=== PATIENT | female | born 2000 | race Caucasian/White ===

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

== ENCOUNTER 2022-05-04 21:33 | Emergency (ER) | payer OTHER ==
--- NOTE | 2022-05-04 22:10 | ERPHSYRPT ---
- History of Present Illness Source: patient Exam Limitations: no limitations Patient Subjective Stated Complaint: States she has pain in the left side of her face. Patient had a seizure prior to coming to the ED and states she hit that side of her face on the concrete. Triage Nursing Assessment: Patient ambulated back to ED without difficulties. Alert and oriented and answering questions appropriately. Patient holding left side of face. No skin alterations noted to left side of face; skin intact with no bruising or swelling. Inside of mouth examined with no abnormalities noted at this time. Physician History: 22 yo wf w long h/o seizure do presents s/p seizure where she fell and hit her head. Pt's has not has a seizure in 3.5 yrs but recently had dose of Keppra increased. She complains of [place]/Facial pain/cervical pain. Occurred: just prior to arrival Severity: mild Head Injury Location: global Method of Injury: other (seizure do) Loss of Consciousness: brief (seconds) Associated Symptoms: denies symptoms Allergies/Adverse Reactions: coconut Allergy (Verified 05/04/22 21:41) coconut oil Allergy (Verified 05/04/22 21:41) jeremy Allergy (Uncoded 05/04/22 21:41) Home Medications: levETIRAcetam [Levetiracetam ER] 6 tab PO HS 05/04/22 [History] Hx Tetanus, Diphtheria Vaccination/Date Given: Yes Hx Influenza Vaccination/Date Given: Yes Hx Pneumococcal Vaccination/Date Given: Yes Immunizations Up to Date: Yes Travel Risk - International Travel Have you traveled outside of the country in past 3 weeks: No - Coronavirus Screening Are you exhibiting any of the following symptoms?: No Close contact with a COVID-19 positive Pt in past 14-21 Days: No - Vaccine Status Have you recieved a Covid-19 vaccination: No - Review of Systems Constitutional: No Symptoms Eyes: No Symptoms Ears, Nose, & Throat: No Symptoms Respiratory: No Symptoms Cardiac: No Symptoms Abdominal/Gastrointestinal: No Symptoms Genitourinary Symptoms: No Symptoms Musculoskeletal: No Symptoms Skin: No Symptoms Neurological: No Symptoms, Headache, Seizure Psychological: No Symptoms Endocrine: No Symptoms Hematologic/Lymphatic: No Symptoms Immunological/Allergic: No Symptoms - Past Medical History Pertinent Past Medical History: Yes Neurological History: Epilepsy, Seizures ENT History: No Pertinent History Cardiac History: No Pertinent History Respiratory History: No Pertinent History Endocrine Medical History: No Pertinent History Musculoskeletal History: Fractures GI Medical History: No Pertinent History History: No Pertinent History Psycho-Social History: Anxiety, Depression Female Reproductive Disorders: No Pertinent History Other Medical History: CHRONIC BACK PAIN - Past Surgical History Past Surgical History: Yes Neuro Surgical History: No Pertinent History Cardiac: No Pertinent History Respiratory: No Pertinent History Gastrointestinal: No Pertinent History Genitourinary: No Pertinent History Musculoskeletal: No Pertinent History, Orthopedic Surgery Female Surgical History: No Pertinent History Other Surgical History: rt arm - Social History Smoking Status: Never smoker Exposure to second hand smoke: No Drug Use: none Patient Lives Alone: No Significant Family History: no pertinent family hx - Female History Hx Last Menstrual Period: April 08, 2022 Hx Now: No - Nursing Vital Signs Nursing Vital Signs: Initial Vital Signs Temperature 98 F 05/04/22 21:43 Pulse Rate 96 H 05/04/22 21:43 Respiratory Rate 19 05/04/22 21:43 Blood Pressure 139/93 05/04/22 21:43 O2 Sat by Pulse Oximetry 98 05/04/22 21:43 Pain Scale Pain Intensity [] 7 Pain Intensity 7 Borderline hypertension - Kary Coma Score Best Eye Response (Kary): (4) open spontaneously Best Verbal Response (Kary): (5) oriented Best Motor Response (Roby): (6) obeys commands Roby Total: 15 - Physical Exam General Appearance: no apparent distress Head Injury: tenderness (Mild L parietal-temporal TTP) Eye Exam: bilateral eye: normal inspection, PERRL, EOMI ENT Exam: airway nml, No evidence of ENT injury, No clear fluid (ears), No clear fluid (nose), No midface instability Neck Exam: supple, trachea midline, tenderness (C-spine mild TTP) Cardiovascular/Respiratory Exam: normal breath sounds, regular rate/rhythm, heart sounds normal Gastrointestinal/Abdominal Exam: soft, non tender Back Exam: normal inspection, normal range of motion, No vertebral tenderness Extremity Exam: non-tender, normal range of motion, normal inspection, normal capillary refill Mental Status Exam: alert, 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, 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 Exam: normal hearing, normal speech, PERRL, abnormal eye position Coordination/Gait Exam: normal gait, normal cerebellar function Motor/Sensory Exam: no motor deficit, no sensory deficit, no pronator drift, negative Babinski's sign DTR Exam: bicep (R): 2+, bicep (L): 2+ Skin Exam: normal color, warm, dry, No rash Lymphatic Exam: adenopathy SpO2 Interpretation: normal SpO2: 98 O2 Delivery: Room Air - Course Nursing assessment & vital signs reviewed: Yes - CT Exams Head CT Interpretation: Tele-radiologist Report (Head-neg) Maxillofacial Bones CT Interpretation: Tele-radiologist Report (No fx) Cervical Spine CT Interpretation: Tele-radiologist Report (No fx/Reactive lymph nodes) Ordered Tests: Active Orders 24 hr Category Date Time Status CERVICAL SPINE WO CONTRAST [CT] Stat Exams 05/04/22 22:03 Taken FACIAL BONES WO CONTRAST [CT] Stat Exams 05/04/22 22:02 Taken HEAD WITHOUT CONTRAST [CT] Stat Exams 05/04/22 22:02 Taken - Progress Progress: improved Progress Note: 05/04/22 23:00 Pt refuses all pain meds Counseled pt/family regarding: diagnosis, need for follow-up, rad results - Departure Departure Disposition: Home Clinical Impression: Seizure, Cervical strain, Facial contusion Condition: Stable Critical Care Time: No Referrals: MARIE WALSH NP [Primary Care Provider] - Follow up/PCP as directed Instructions: Seizures, Adult (DC), Cervical Muscle Strain (DC) Additional Instructions: No driving until cleared by neurologist/Follow up with neurologist in 1-2 days Ice to contused areas for 12-24 hours' Motrin/Tylenol for pain
[2022-05-04 23:29] VITALS: BP 140/88; PULSE 84
[2022-05-05 00:21] VITALS: O2SAT 98
--- NOTE | 2022-05-05 08:55 | XRAY ---
Indication: Seizure. Status post fall. Left head/facial injury. Multiple contiguous axial images obtained through the head without contrast. Comparison: None Normal appearing brain parenchyma, ventricles, and bony calvarium. Paranasal sinuses and mastoid air cells are clear. Impression: Normal CT head without contrast exam. Comment: Preliminary interpretation made by [facility]. No critical discrepancy.
--- NOTE | 2022-05-05 08:55 | XRAY ---
Indication: Seizure. Status post fall. Left head/facial injury. Multiple contiguous axial images obtained through the cervical spine. Sagittal and coronal reformatted images obtained. Comparison: None Axial images negative for acute fracture, suspicious bony lesions, or spinal canal stenosis. Sagittal and coronal reformatted images demonstrates mild lordotic reversal, positional versus paraspinal spasm. Vertebral body heights/disc spaces maintained. No acute compression fracture, subluxation, or jumped facet. Normal appearing craniocervical junction. Visualized noncontrasted soft tissues unremarkable. Impression: Cervical lordotic reversal, positional versus paraspinal spasm. Negative for acute fracture/subluxation. Comment: Preliminary interpretation made by [facility]. No critical discrepancy.
--- NOTE | 2022-05-05 08:57 | XRAY ---
Indication: Seizure. Status post fall. Left head/facial injury. Multiple contiguous axial images obtained through the facial bones. Sagittal and coronal reformative images obtained. Comparison: None No acute fracture, suspicious bony lesions, or radiopaque foreign body. Orbits including roof, ayala, and floors intact. Paranasal sinuses and nasal passages are clear. Mild nasal septal deviation to the left. Visualized noncontrasted soft tissues are unremarkable. Impression: Nasal septal deviation. Remaining CT facial bones normal. Comment: Preliminary interpretation made by [facility]. No critical discrepancy.
== END 2022-05-04 23:29 | disposition home or self-care (01) ==
LOC: ED 21:33
DX: S16.1XXA Strain of muscle, fascia and tendon at neck level, initial encounter (principal); S00.83XA Contusion of other part of head, initial encounter; W18.30XA Fall on same level, unspecified, initial encounter; G40.909 Epilepsy, unspecified, not intractable, without status epilepticus; R51.9 Headache, unspecified; Z28.310 Unvaccinated for COVID-19
CPT/HCPCS: 70450; 70486; 72125; 99283

== ENCOUNTER 2022-06-08 16:02 | Emergency (ER) | payer OTHER ==
[2022-06-08 16:26] VITALS: O2SAT 98
--- NOTE | 2022-06-08 16:37 | ERPHSYRPT ---
- History of Present Illness Time Seen by Provider: 06/08/22 16:32 Source: patient Exam Limitations: no limitations Patient Subjective Stated Complaint: C/O left eye pain with swelling and visual impairment that patient noted this morning upon woking up. States that vision and swelling just keep getting worse throughout the day. Denies any injury to the eye. Triage Nursing Assessment: Patient ambulated back to ED. She is alert and oriented and answering questions appropriately. Left eyelid is very swollen as well as under the eye has some edema. Patient wears bifocals. Patient's vision checked via the ED eye chart with the following results: Right eye 20/30, left eye 20/200, and both eyes at once 20/70. Patient unable to open eye for this nurse to visually inspect due to pain and swelling at this time. Physician History: Left eyelid is very swollen as well as under the eye has some edema. Patient wears bifocals. Patient's vision checked via the ED eye chart with the following results: Right eye 20/30, left eye 20/200, and both eyes at once 20/70. Patient unable to open eye for this nurse to visually inspect due to pain and swelling at this time. Timing/Duration: abrupt onset Severity: moderate Prearrival Treatment: no prearrival treatment Associated Symptoms: other (left eyelid swelling) Allergies/Adverse Reactions: coconut Allergy (Verified 06/08/22 16:10) coconut oil Allergy (Verified 06/08/22 16:10) jeremy Allergy (Uncoded 06/08/22 16:10) Home Medications: levETIRAcetam [Levetiracetam ER] 6 tab PO HS 05/04/22 [History] Hx Tetanus, Diphtheria Vaccination/Date Given: Yes Hx Influenza Vaccination/Date Given: No Hx Pneumococcal Vaccination/Date Given: No Immunizations Up to Date: Yes Travel Risk - International Travel Have you traveled outside of the country in past 3 weeks: No - Coronavirus Screening Are you exhibiting any of the following symptoms?: No Close contact with a COVID-19 positive Pt in past 14-21 Days: No - Vaccine Status Have you recieved a Covid-19 vaccination: No - Review of Systems Constitutional: No Fever, No Chills Eyes: Other (left eyelids swelling) Ears, Nose, & Throat: No Symptoms Respiratory: No Cough, No Dyspnea Cardiac: No Chest Pain, No Edema, No Syncope Abdominal/Gastrointestinal: No Abdominal Pain, No Nausea, No Vomiting, No Diarrhea Genitourinary Symptoms: No Dysuria Musculoskeletal: No Back Pain, No Neck Pain Skin: No Rash Neurological: No Dizziness, No Focal Weakness, No Sensory Changes Psychological: No Symptoms Endocrine: No Symptoms All Other Systems: Reviewed and Negative - Past Medical History Pertinent Past Medical History: Yes Neurological History: Epilepsy, Seizures ENT History: No Pertinent History Cardiac History: Hypertension Respiratory History: No Pertinent History Endocrine Medical History: No Pertinent History Musculoskeletal History: Fractures GI Medical History: No Pertinent History History: No Pertinent History Psycho-Social History: Anxiety, Depression Female Reproductive Disorders: No Pertinent History Other Medical History: CHRONIC BACK PAIN - Past Surgical History Past Surgical History: Yes Neuro Surgical History: No Pertinent History Cardiac: No Pertinent History Respiratory: No Pertinent History Gastrointestinal: No Pertinent History Genitourinary: No Pertinent History Musculoskeletal: No Pertinent History, Orthopedic Surgery Female Surgical History: No Pertinent History Other Surgical History: rt arm, ankle, knee - Social History Smoking Status: Never smoker Exposure to second hand smoke: No Drug Use: none Patient Lives Alone: No Significant Family History: no pertinent family hx - Female History Hx Last Menstrual Period: A week ago Hx Now: No - Nursing Vital Signs Nursing Vital Signs: Initial Vital Signs Temperature 98.3 F 06/08/22 16:10 Pulse Rate 81 06/08/22 16:10 Respiratory Rate 16 06/08/22 16:10 Blood Pressure 140/111 06/08/22 16:10 O2 Sat by Pulse Oximetry 98 06/08/22 16:10 Pain Scale Pain Intensity 6 - Physical Exam General Appearance: no apparent distress, alert Eye Exam: left eye: other (upper and lower eyelid swelling), bilateral eye: PERRL, EOMI Ear Exam: bilateral ear: auricle normal Nasal Exam: normal inspection Throat Exam: pharynx normal, moist mucus membranes, No tonsillar exudate Neck Exam: supple Cardiovascular/Respiratory Exam: normal breath sounds, regular rate/rhythm Abdominal Exam: non-tender, soft Neurologic Exam: alert, 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, sensation nml, No motor deficits Skin Exam: normal color, warm, dry SpO2: 98 - Course Nursing assessment & vital signs reviewed: Yes - Progress Progress: improved Counseled pt/family regarding: diagnosis, need for follow-up - Departure Departure Disposition: Home Clinical Impression: Allergic reaction to detergent Condition: Stable Critical Care Time: No Referrals: MARIE WALSH NP [Primary Care Provider] - Follow up/PCP as directed Instructions: Angioedema (DC), Allergic Reaction ED Additional Instructions: Discharge/Care Plan SARA RODRIGUEZ was seen on 06/08/22 in the Emergency Room. The patient was counseled regarding Diagnosis,Lab results, Imaging studies, need for follow up and when to return to the Emergency Room. Prescriptions given: Discharge Note I have spoken with the patient and/or caregivers. I have explained the patient's condition, diagnosis and treatment plan based on the information available to me at this time. I have answered the patient's and/or caregiver's questions and addressed any concerns. The patient and/or caregivers have as good understanding of the patient's diagnosis, condition and treatment plan as can be expected at this point. The vital signs have been stable. The patient's condition is stable and appropriate for discharge from the emergency department. The patient will pursue further outpatient evaluation with the primary care physician or other designated or consulting physician as outlined in the discharge instructions. The patient and/or caregivers are agreeable to this plan of care and follow-up instructions have been explained in detail. The patient and/or caregivers have received these instruction. The patient/and or caregivers are aware that any significant change in condition or worsening of symptoms should prompt an immediate return to this or the closest emergency department or call 911. Prescriptions: Methylprednisolone Packet [Medrol Dosepack] 4 mg PO UD #21 packet
[2022-06-08] MEDS ORDERED: solu-MEDROL 125 MG, Sterile H2O 10 ml 2 ML IM ONE ×2 (16:38)
[2022-06-08] MEDS ORDERED: Sterile H2O 10 ml IJ ONE (16:41)
[2022-06-08] MEDS ORDERED: solu-MEDROL ONE (16:41)
[2022-06-08 17:01] VITALS: BP 136/96; PULSE 96
== END 2022-06-08 17:01 | disposition home or self-care (01) ==
LOC: ED 16:02
DX: T78.49XA Other allergy, initial encounter (principal); H57.89 Other specified disorders of eye and adnexa; I10 Essential (primary) hypertension; Z28.310 Unvaccinated for COVID-19; Z79.52 Long term (current) use of systemic steroids
CPT/HCPCS: 96372; 99282; J2930

== ENCOUNTER 2022-10-13 19:43 | Emergency (ER) | payer OTHER ==
[2022-10-13 20:58] VITALS: O2SAT 98
--- NOTE | 2022-10-13 21:40 | ERPHSYRPT ---
- History of Present Illness Time Seen by Provider: 10/13/22 21:00 Source: patient Exam Limitations: no limitations Patient Subjective Stated Complaint: pt states she has a history of seizures, diagnosed with epilepsy since , states she has had several grand mal seizu res, and petit mal seizures that began at 11 am this morning she states she has had 6 seizures that she states she experienced auras before, she is unsure how long they lasted. states she has had sinus problems in the last week and states that they may have had an effect on her so that they increased her seizure activity. Triage Nursing Assessment: pt is alert and oriented. ambulated to room without assistance, pt states she has a postictal headache that she rates 10/10. Physician History: Patient is 22-year-old female presents emergency department for evaluation of seizures. Patient has a history of epilepsy. Patient taken Keppra as recom mended. Patient states she had several generalized seizures today. Patient called her neurologist Dr. Hoffman who advised her to come to our ED for evaluation. Patient states he will adjust her medications at home he just wants to make sure there is nothing obvious triggering her seizures. Patient otherwise feels well. No tongue biting. Patient denies incontinence. No fevers. No neck pain. No photophobia patient completely symptomatic at this time. She voices no other complaints or concerns at this time. Timing/Duration: today Severity: mild Modifying Factors: Improves With: nothing Associated Symptoms: denies symptoms Allergies/Adverse Reactions: No Known Drug Allergies Allergy (Unverified 10/13/22 20:58) Home Medications: levETIRAcetam [Levetiracetam ER] 6 tab PO HS 05/04/22 [History] Hx Tetanus, Diphtheria Vaccination/Date Given: Yes Hx Influenza Vaccination/Date Given: No Hx Pneumococcal Vaccination/Date Given: No Travel Risk - International Travel Have you traveled outside of the country in past 3 weeks: No - Coronavirus Screening Are you exhibiting any of the following symptoms?: No Close contact with a COVID-19 positive Pt in past 14-21 Days: No - Vaccine Status Have you recieved a Covid-19 vaccination: Yes Purchasing/Receiving: Rewarding Return - Vaccination Dates Dates if Unknown: unknown - Review of Systems Constitutional: No Symptoms, No Fever, No Chills Eyes: No Symptoms Ears, Nose, & Throat: No Symptoms Respiratory: No Symptoms, No Cough, No Dyspnea Cardiac: No Symptoms, No Chest Pain, No Edema, No Syncope Abdominal/Gastrointestinal: No Symptoms, No Abdominal Pain, No Nausea, No Vomiting, No Diarrhea Genitourinary Symptoms: No Symptoms, No Dysuria Musculoskeletal: No Symptoms, No Back Pain, No Neck Pain Skin: No Symptoms, No Rash Neurological: No Symptoms, No Dizziness, No Focal Weakness, No Sensory Changes Psychological: No Symptoms Endocrine: No Symptoms Hematologic/Lymphatic: No Symptoms Immunological/Allergic: No Symptoms All Other Systems: Reviewed and Negative - Past Medical History Pertinent Past Medical History: Yes Neurological History: Epilepsy, Seizures ENT History: No Pertinent History Cardiac History: Hypertension Respiratory History: No Pertinent History Endocrine Medical History: No Pertinent History Musculoskeletal History: Fractures GI Medical History: No Pertinent History History: No Pertinent History Psycho-Social History: Anxiety, Depression Female Reproductive Disorders: No Pertinent History Other Medical History: CHRONIC BACK PAIN - Past Surgical History Past Surgical History: Yes Neuro Surgical History: No Pertinent History Cardiac: No Pertinent History Respiratory: No Pertinent History Gastrointestinal: No Pertinent History Genitourinary: No Pertinent History Musculoskeletal: No Pertinent History, Orthopedic Surgery Female Surgical History: No Pertinent History Other Surgical History: rt arm, ankle, knee - Social History Smoking Status: Never smoker Exposure to second hand smoke: No Drug Use: none Patient Lives Alone: No Significant Family History: no pertinent family hx - Female History Hx Last Menstrual Period: 10/09/22 Hx Now: No - Nursing Vital Signs Nursing Vital Signs: Initial Vital Signs Temperature 98.7 F 10/13/22 20:45 Pulse Rate 93 H 10/13/22 20:45 Respiratory Rate 18 10/13/22 20:45 Blood Pressure 171/92 10/13/22 20:45 O2 Sat by Pulse Oximetry 98 10/13/22 20:45 Pain Scale Pain Intensity 5 - Physical Exam General Appearance: no apparent distress, alert Eye Exam: PERRL/EOMI, eyes nml inspection Ears, Nose, Throat Exam: normal ENT inspection, TMs normal, pharynx normal, moist mucous membranes Neck Exam: normal inspection, non-tender, supple, full range of motion Respiratory Exam: normal breath sounds, lungs clear, No respiratory distress Cardiovascular Exam: regular rate/rhythm, normal heart sounds, normal peripheral pulses Gastrointestinal/Abdomen Exam: soft, normal bowel sounds, No tenderness, No mass Back Exam: normal inspection, normal range of motion, No CVA tenderness, No vertebral tenderness Extremity Exam: normal inspection, normal range of motion, pelvis stable Neurologic Exam: alert, 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, cooperative, normal mood/affect, nml cer ebellar function, nml station & gait, sensation nml, No motor deficits Skin Exam: normal color, warm, dry, No rash Lymphatic Exam: No adenopathy SpO2 Interpretation: normal SpO2: 98 O2 Delivery: Room Air - Course Nursing assessment & vital signs reviewed: Yes Ordered Tests: Active Orders 24 hr Category Date Time Status IV Insertion STAT Care 10/13/22 21:26 Active CBC W DIFF Stat Lab 10/13/22 22:00 Completed CMP Stat Lab 10/13/22 21:50 Completed HCG,QUALITATIVE URINE Stat Lab 10/13/22 21:30 Completed MAGNESIUM Stat Lab 10/13/22 21:50 Completed UA W/RFX CULTURE Stat Lab 10/13/22 21:30 Completed Urine Triage Profile Stat Lab 10/13/22 21:30 Completed Lab/Rad Data: Laboratory Result Diagrams 10/13/22 22:00 10/13/22 21:50 Laboratory Results 10/13/22 10/13/22 10/13/22 Range/Units 22:00 21:50 21:50 WBC 9.0 (4.0-10.5) x10^3/uL RBC 4.49 (4.1-5.4) x10^6/uL Hgb 13.7 (12.0-16.0) g/dL Hct 40.1 (35-47) % MCV 89.3 (78-100) fL MCH 30.5 (26-32) pg MCHC 34.2 (32-36) g/dL RDW 12.2 (11.5-14.0) % Plt Count 294 (150-450) x10^3/uL MPV 10.5 (7.5-11.0) fL Gran % 62.6 (36.0-66.0) % Immature Gran % (Auto) 0.2 (0.00-0.4) % Nucleat RBC Rel Count 0.0 (0.00-0.1) % Eos # (Auto) 0.08 (0-0.5) x10^3/uL Immature Gran # (Auto) 0.02 (0.00-0.03) x10^3u/L Absolute Lymphs (auto) 2.55 (1.0-4.6) x10^3/uL Absolute Monos (auto) 0.68 (0.0-1.3) x10^3/uL Absolute Nucleated RBC 0.00 (0.00-0.01) x10^3u/L Lymphocytes % 28.5 (24.0-44.0) % Monocytes % 7.6 (0.0-12.0) % Eosinophils % 0.9 (0.00-5.0) % Basophils % 0.2 (0.0-0.4) % Absolute Granulocytes 5.60 (1.4-6.9) x10^3/uL Basophils # 0.02 (0-0.4) x10^3/uL Sodium 139 (137-145) mmol/L Potassium 4.0 (3.5-5.1) mmol/L Chloride 103 (98-107) mmol/L Carbon Dioxide 30 (22-30) mmol/L Anion Gap 10.1 (5-15) MEQ/L BUN 8 (7-17) mg/dL Creatinine 0.79 (0.52-1.04) mg/dL Estimated GFR > 60.0 ML/MIN Glucose 90 (74-106) mg/dL Calcium 9.2 (8.4-10.2) mg/dL Magnesium 1.8 (1.6-2.3) mg/dL Total Bilirubin 0.70 (0.2-1.3) mg/dL AST 27 (14-36) U/L ALT 33 (0-35) U/L Alkaline Phosphatase 66 (38-126) U/L Serum Total Protein 8.0 (6.3-8.2) g/dL Albumin 4.5 (3.5-5.0) g/dL Urinalys Dipstick Clnc Urine Color (YELLOW) Urine Appearance (CLEAR) Urine pH (5-6) Ur Specific [place] (1.005-1.025) POC Urine Protein Conf (Negative) Urine Ketones (NEGATIVE) Urine Nitrite (NEGATIVE) Urine Bilirubin (NEGATIVE) Urine Urobilinogen (0-1) mg/dL Urine Leukocytes (NEGATIVE) Urine WBC (Auto) (0-5) /HPF Urine RBC (Auto) (0-2) /HPF U Epithel Cells (Auto) (FEW) /HPF Urine Bacteria (Auto) Urine RBC (0-5) Marty/ul Urine Mucus (Auto) (NEGATIVE) /HPF Urine Sperm (Auto) (NEGATIVE) /HPF Ur Culture Indicated? Urine Glucose (NEGATIVE) mg/dL Urine HCG, Qual (Negative) Urine Opiates Level (NEGATIVE) Ur Methadone (NEGATIVE) Urine Barbiturates (NEGATIVE) Ur Phencyclidine (PCP) (NEGATIVE) Urine Amphetamine (NEGATIVE) U Benzodiazepine Level (NEGATIVE) Urine Cocaine (NEGATIVE) Urine Marijuana (THC) (NEGATIVE) 10/13/22 10/13/22 10/13/22 Range/Units 21:30 21:30 21:30 WBC (4.0-10.5) x10^3/uL RBC (4.1-5.4) x10^6/uL Hgb (12.0-16.0) g/dL Hct (35-47) % MCV (78-100) fL MCH (26-32) pg MCHC (32-36) g/dL RDW (11.5-14.0) % Plt Count (150-450) x10^3/uL MPV (7.5-11.0) fL Gran % (36.0-66.0) % Immature Gran % (Auto) (0.00-0.4) % Nucleat RBC Rel Count (0.00-0.1) % Eos # (Auto) (0-0.5) x10^3/uL Immature Gran # (Auto) (0.00-0.03) x10^3u/L Absolute Lymphs (auto) (1.0-4.6) x10^3/uL Absolute Monos (auto) (0.0-1.3) x10^3/uL Absolute Nucleated RBC (0.00-0.01) x10^3u/L Lymphocytes % (24.0-44.0) % Monocytes % (0.0-12.0) % Eosinophils % (0.00-5.0) % Basophils % (0.0-0.4) % Absolute Granulocytes (1.4-6.9) x10^3/uL Basophils # (0-0.4) x10^3/uL Sodium (137-145) mmol/L Potassium (3.5-5.1) mmol/L Chloride (98-107) mmol/L Carbon Dioxide (22-30) mmol/L Anion Gap (5-15) MEQ/L BUN (7-17) mg/dL Creatinine (0.52-1.04) mg/dL Estimated GFR ML/MIN Glucose (74-106) mg/dL Calcium (8.4-10.2) mg/dL Magnesium (1.6-2.3) mg/dL Total Bilirubin (0.2-1.3) mg/dL AST (14-36) U/L ALT (0-35) U/L Alkaline Phosphatase (38-126) U/L Serum Total Protein (6.3-8.2) g/dL Albumin (3.5-5.0) g/dL Urinalys Dipstick Clnc MAIN LAB Urine Color YELLOW (YELLOW) Urine Appearance CLEAR (CLEAR) Urine pH 7.0 (5-6) Ur Specific [place] 1.020 (1.005-1.025) POC Urine Protein Conf TRACE A (Negative) Urine Ketones NEGATIVE (NEGATIVE) Urine Nitrite NEGATIVE (NEGATIVE) Urine Bilirubin NEGATIVE (NEGATIVE) Urine Urobilinogen 1 A (0-1) mg/dL Urine Leukocytes NEGATIVE (NEGATIVE) Urine WBC (Auto) 3-5 A (0-5) /HPF Urine RBC (Auto) 0-2 (0-2) /HPF U Epithel Cells (Auto) RARE (FEW) /HPF Urine Bacteria (Auto) Not Reportable Urine RBC TRACE-INTACT A (0-5) Marty/ul Urine Mucus (Auto) SLIGHT A (NEGATIVE) /HPF Urine Sperm (Auto) PRESENT A (NEGATIVE) /HPF Ur Culture Indicated? NO Urine Glucose NEGATIVE (NEGATIVE) mg/dL Urine HCG, Qual NEGATIVE (Negative) Urine Opiates Level NEGATIVE (NEGATIVE) Ur Methadone NEGATIVE (NEGATIVE) Urine Barbiturates NEGATIVE (NEGATIVE) Ur Phencyclidine (PCP) NEGATIVE (NEGATIVE) Urine Amphetamine NEGATIVE (NEGATIVE) U Benzodiazepine Level NEGATIVE (NEGATIVE) Urine Cocaine NEGATIVE (NEGATIVE) Urine Marijuana (THC) NEGATIVE (NEGATIVE) - Progress Progress: improved Progress Note: Patient reassessed. She is well. Patient resting comfortably. Work-up negative. Patient was in advised to come to our ED for checkup. Patient declined admission. Patient states she will call her neurologist in the morning and adjust the Keppra dosage as recommended which is typically 200 mg higher than the previous dose. Will discharge at this time. Patient voices no other complaints or concerns at this time. Portions of this note were created with voice recognition technology. There may be grammatical, spelling, punctuation or sound alike errors 10/14/22 00:10 Counseled pt/family regarding: lab results, diagnosis, need for follow-up - Departure Departure Disposition: Home Clinical Impression: Seizure Condition: Stable Critical Care Time: No Referrals: MARIE WALSH NP [Primary Care Provider] - Follow up/PCP as directed Additional Instructions: Discharge/Care Plan SARA RODRIGUEZ was seen on 10/14/22 in the Emergency Room. The patient was counseled regarding Diagnosis,Lab results, Imaging studies, need for follow up and when to return to the Emergency Room. Prescriptions given: Discharge Note I have spoken with the patient and/or caregivers. I have explained the patient's condition, diagnosis and treatment plan based on the information available to me at this time. I have answered the patient's and/or caregiver's questions and addressed any concerns. The patient and/or caregivers have as good understanding of the patient's diagnosis, condition and treatment plan as can be expected at this point. The vital signs have been stable. The patient's condition is stable and appropriate for discharge from the emergency department. The patient will pursue further outpatient evaluation with the primary care physician or other designated or consulting physician as outlined in the discharge instructions. The patient and/or caregivers are agreeable to this plan of care and follow-up instructions have been explained in detail. The patient and/or caregivers have received these instruction. The patient/and or caregivers are aware that any significant change in condition or worsening of symptoms should prompt an immediate return to this or the closest emergency department or call 911.
[2022-10-13 21:52] LABS: Appearance CLEAR (CLEAR); Bilirubin NEGATIVE (NEGATIVE); Glucose NEGATIVE (NEGATIVE); Ketones NEGATIVE (NEGATIVE); Nitrite NEGATIVE (NEGATIVE); Protein,Urine Dip TRACE (Negative); RBC TRACE-INTACT Ery/ul (0-5); Urobilinogen 1 mg/dL (0-1)
[2022-10-13 21:53] LABS: Dipstick done @ ? MAIN LAB
[2022-10-13 21:58] LABS: Epithelial Cells RARE /HPF (FEW); Mucus SLIGHT /HPF (NEGATIVE); RBC 0-2 /HPF (0-2); Sperm PRESENT /HPF (NEGATIVE)
[2022-10-13 21:59] LABS: Urine Cultured Indicated? NO
[2022-10-13 22:10] LABS: Amphetamine,Urine NEGATIVE (NEGATIVE); Barbiturate,Urine NEGATIVE (NEGATIVE); Benzodiazepine,Urine NEGATIVE (NEGATIVE); Cocaine,Urine NEGATIVE (NEGATIVE); Methadone,Urine NEGATIVE (NEGATIVE); Opiate,Urine NEGATIVE (NEGATIVE); PCP,Urine NEGATIVE (NEGATIVE); THC,Urine NEGATIVE (NEGATIVE)
[2022-10-13 22:20] LABS: ALBUMIN 4.5 g/dL (3.5-5.0); ALKALINE PHOSPHATASE 66 U/L (38-126); ANION GAP 10.1 MEQ/L (5-15); BLOOD UREA NITROGEN 8 mg/dL (7-17); CHLORIDE 103 mmol/L (98-107); Calcium 9.2 mg/dL (8.4-10.2); Carbon Dioxide 30 mmol/L (22-30); Creatinine 1 0.79 mg/dL (0.52-1.04); EST GLOMERULAR FILTRATION RATE > 60.0 ML/MIN; Glucose 90 mg/dL (74-106); SGOT/AST 27 U/L (14-36); SGPT/ALT 33 U/L (0-35); SODIUM 139 mmol/L (137-145)
[2022-10-13 22:41] LABS: Basophil (Absolute #) 0.02 x10^3/uL (0-0.4); Eosinophil % 0.9 % (0.00-5.0); Eosinophil (Absolute #) 0.08 x10^3/uL (0-0.5); Hematocrit 40.1 % (35-47); Hemoglobin 13.7 g/dL (12.0-16.0); Lymphocyte (Absolute #) 2.55 x10^3/uL (1.0-4.6); Lymphocytes % 28.5 % (24.0-44.0); Mean Cell Volume 89.3 fL (78-100); Mean Corpuscular Hemoglobin 30.5 pg (26-32); Mean Corpuscular Hgb Concent. 34.2 g/dL (32-36); Mean Platelet Volume 10.5 fL (7.5-11.0); Monocyte (Absolute #) 0.68 x10^3/uL (0.0-1.3); Monocytes % 7.6 % (0.0-12.0); Neutrophil % 62.6 % (36.0-66.0); Platelet Count 294 x10^3/uL (150-450); Red Blood Count 4.49 x10^6/uL (4.1-5.4); Red Cell Distribution Width 12.2 % (11.5-14.0)
[2022-10-14 00:26] VITALS: BP 135/77; PULSE 75
== END 2022-10-14 00:30 | disposition home or self-care (01) ==
LOC: ED 19:43
DX: G40.909 Epilepsy, unspecified, not intractable, without status epilepticus (principal); I10 Essential (primary) hypertension; Z79.899 Other long term (current) drug therapy
CPT/HCPCS: 36415; 80053; 80177; 80307; 81015; 81025; 83735; 85025; 99282

== ENCOUNTER 2023-02-23 19:45 | Emergency (ER) | payer OTHER ==
--- NOTE | 2023-02-23 19:55 | ERPHSYRPT ---
- History of Present Illness Time Seen by Provider: 02/23/23 19:54 Source: patient Exam Limitations: no limitations Physician History: This is a 23-year-old overweight white female patient of nurse practitioner Quyen Kenney who presents with a syncopal episode that occurred prior to arrival. Patient states that she was bending over cleaning when she "passed out". Her witnessed this and he did not see any type of seizure activity but he states that she was passed out for approximately "30 seconds". Patient states for the last week she has intermittently had a sharp central forehead pain with associated nausea. Patient has a history of seizure disorder but has not had a seizure since 2019 and has not been on any medication for over a year. Patient does have a history of anemia and is on iron supplementation. She denies any traumatic head injury. Patient has no complaints of chest pain, denies shortness of breath and has not had any increased bleeding Timing/Duration: today Severity: mild Character of Deficits: none Deficits: no difficulties Baseline/Normal Cognition: alert 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 Current Cognition: alert 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 Baseline Gait: walks w/o assistance Associated Symptoms: nausea, headache (Central forehead), No vomiting, No vision changes Allergies/Adverse Reactions: No Known Drug Allergies Allergy (Verified 02/23/23 20:22) Home Medications: Iron 60 mg PO DAILY 02/23/23 [History] Hx Tetanus, Diphtheria Vaccination/Date Given: Yes Hx Influenza Vaccination/Date Given: No Hx Pneumococcal Vaccination/Date Given: No Travel Risk - International Travel Have you traveled outside of the country in past 3 weeks: No - Coronavirus Screening Are you exhibiting any of the following symptoms?: No Close contact with a COVID-19 positive Pt in past 14-21 Days: No - Vaccine Status Have you recieved a Covid-19 vaccination: Yes 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: [employer] - Vaccination Dates Dates if Unknown: unknown - Review of Systems Constitutional: No Symptoms Eyes: No Symptoms Ears, Nose, & Throat: No Symptoms Respiratory: No Symptoms Cardiac: No Symptoms Abdominal/Gastrointestinal: No Symptoms Genitourinary Symptoms: No Symptoms Musculoskeletal: No Symptoms Skin: No Symptoms Neurological: Headache, Other (Single syncopal episode) Psychological: No Symptoms Endocrine: No Symptoms Hematologic/Lymphatic: No Symptoms Immunological/Allergic: No Symptoms All Other Systems: Reviewed and Negative - Past Medical History Pertinent Past Medical History: Yes Neurological History: Epilepsy, Seizures ENT History: No Pertinent History Cardiac History: Hypertension Respiratory History: No Pertinent History Endocrine Medical History: No Pertinent History Musculoskeletal History: Fractures GI Medical History: No Pertinent History History: No Pertinent History Psycho-Social History: Anxiety, Depression Female Reproductive Disorders: No Pertinent History Other Medical History: CHRONIC BACK PAIN - Past Surgical History Past Surgical History: Yes Neuro Surgical History: No Pertinent History Cardiac: No Pertinent History Respiratory: No Pertinent History Gastrointestinal: No Pertinent History Genitourinary: No Pertinent History Musculoskeletal: No Pertinent History, Orthopedic Surgery Female Surgical History: No Pertinent History Other Surgical History: rt arm, ankle, knee - Social History Smoking Status: Never smoker Exposure to second hand smoke: No Drug Use: none Patient Lives Alone: No Significant Family History: no pertinent family hx - Nursing Vital Signs Nursing Vital Signs: Initial Vital Signs Temperature 97.8 F 02/23/23 20:10 Pulse Rate 87 02/23/23 20:10 Respiratory Rate 16 02/23/23 20:10 Blood Pressure 127/76 02/23/23 20:10 O2 Sat by Pulse Oximetry 100 02/23/23 20:10 Pain Scale Pain Intensity 0 - [place] Coma Scale Best Eye Response ([place]): (4) open spontaneously Best Verbal Response ([place]): (5) oriented Best Motor Response ([place]): (6) obeys commands [place] Total: 15 - Physical Exam General Appearance: no apparent distress, alert, anxiety, obese Eye Exam: bilateral eye: normal inspection, PERRL, EOMI Ears, Nose, Throat Exam: normal ENT inspection, moist mucous membranes Neck Exam: normal inspection, non-tender, supple, full range of motion Respiratory: normal breath sounds, lungs clear, airway intact, No chest tenderness, No respiratory distress Cardiovascular: regular rate/rhythm, normal heart sounds, normal peripheral pulses Gastrointestinal: soft, normal bowel sounds, No tenderness Pelvic Exam: not done Rectal Exam: not done Back Exam: normal inspection, normal range of motion, No CVA tenderness, No vertebral tenderness Extremity Exam: normal inspection, normal range of motion, pelvis stable Mental Status: alert, 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, cooperative ballaster Exam: normal hearing, normal speech, PERRL, tongue midline Coordination/Gait: normal finger to nose, normal gait, normal cerebellar function Motor/Sensory: no motor deficit, no sensory deficit Skin Exam: normal color, warm, dry SpO2 Interpretation: normal O2 Delivery: Room Air - Course Nursing assessment & vital signs reviewed: Yes EKG Interpreted by Me: RATE (69), Sinus Rhythm, NORMAL AXIS, NORMAL INTERVALS, NORMAL QRS, NORMAL ST-T, Other (No acute ischemic changes on today's twelve-lead EKG. I interpreted this twelve-lead EKG.) Ordered Tests: Active Orders 24 hr Category Date Time Status Clean Catch Urine Specimen STAT Care 02/23/23 20:48 Active EKG-ER Only STAT Care 02/23/23 20:48 Active IV Insertion STAT Care 02/23/23 20:48 Active Pulse Oximetry (ED) STAT Care 02/23/23 20:48 Active HEAD WITHOUT CONTRAST [CT] Stat Exams 02/23/23 20:48 Taken CBC W DIFF Stat Lab 02/23/23 21:15 Completed CMP Stat Lab 02/23/23 21:15 Completed CULTURE,URINE Stat Lab 02/23/23 20:40 Received ETHYL ALCOHOL Stat Lab 02/23/23 21:15 Completed HCG QUALITATIVE,SERUM Stat Lab 02/23/23 21:15 Completed UA W/RFX UR CULTURE Stat Lab 02/23/23 20:40 Completed Urine Triage Profile Stat Lab 02/23/23 20:40 Completed Medication Summary Discontinued Medications Generic Name Dose Route Start Last Admin Trade Name Freq PRN Reason Stop Dose Admin Sodium Chloride 1,000 mls @ 999 mls/hr 02/23/23 20:48 02/23/23 21:22 Sodium Chloride 0.9% 1000 Ml IV 02/23/23 21:48 999 mls/hr .Q1H1M STA Administration Sodium Chloride Confirm 02/23/23 21:19 Sodium Chloride 0.9% 1000 Ml Administered 02/23/23 21:20 Dose 1,000 mls @ ud .ROUTE .STK-MED ONE Ceftriaxone Sodium/Dextrose 1 g in 50 mls @ 100 mls/hr 02/23/23 21:42 02/23/23 21:55 Rocephin 1 Gm-D5w 50 Ml Bag IV 02/23/23 22:11 100 ml/hr STAT STA 100 mls/hr Administration Ceftriaxone Sodium/Dextrose Confirm 02/23/23 21:48 Rocephin 1 Gm-D5w 50 Ml Bag Administered 02/23/23 21:49 Dose 1 g in 50 mls @ ud IV .STK-MED ONE Ondansetron HCl 4 mg 02/23/23 20:52 02/23/23 21:22 Ondansetron Hcl 4 Mg/2 Ml Vial IV 02/23/23 20:53 4 mg STAT ONE Administration Ondansetron HCl Confirm 02/23/23 21:19 Ondansetron Hcl 4 Mg/2 Ml Vial Administered 02/23/23 21:20 Dose 4 mg .ROUTE .STK-MED ONE Lab/Rad Data: Laboratory Result Diagrams 02/23/23 21:15 02/23/23 21:15 Laboratory Results 02/23/23 02/23/23 02/23/23 Range/Units 21:15 21:15 21:15 WBC 9.0 (4.0-10.5) x10^3/uL RBC 4.59 (4.1-5.4) x10^6/uL Hgb 13.2 (12.0-16.0) g/dL Hct 39.9 (35-47) % MCV 86.9 (78-100) fL MCH 28.8 (26-32) pg MCHC 33.1 (32-36) g/dL RDW 12.7 (11.5-14.0) % Plt Count 270 (150-450) x10^3/uL MPV 10.7 (7.5-11.0) fL Gran % 66.2 H (36.0-66.0) % Immature Gran % (Auto) 0.3 (0.00-0.4) % Nucleat RBC Rel Count 0.0 (0.00-0.1) % Eos # (Auto) 0.08 (0-0.5) x10^3/uL Immature Gran # (Auto) 0.03 (0.00-0.03) x10^3u/L Absolute Lymphs (auto) 2.33 (1.0-4.6) x10^3/uL Absolute Monos (auto) 0.59 (0.0-1.3) x10^3/uL Absolute Nucleated RBC 0.00 (0.00-0.01) x10^3u/L Lymphocytes % 25.9 (24.0-44.0) % Monocytes % 6.5 (0.0-12.0) % Eosinophils % 0.9 (0.00-5.0) % Basophils % 0.2 (0.0-0.4) % Absolute Granulocytes 5.96 (1.4-6.9) x10^3/uL Basophils # 0.02 (0-0.4) x10^3/uL Sodium 142 (137-145) mmol/L Potassium 3.3 L (3.5-5.1) mmol/L Chloride 102 (98-107) mmol/L Carbon Dioxide 30 (22-30) mmol/L Anion Gap 13.0 (5-15) MEQ/L BUN 11 (7-17) mg/dL Creatinine 0.80 (0.52-1.04) mg/dL Estimated GFR > 60.0 ML/MIN Glucose 77 (74-106) mg/dL Calcium 9.0 (8.4-10.2) mg/dL Total Bilirubin 0.40 (0.2-1.3) mg/dL AST 29 (14-36) U/L ALT 35 (0-35) U/L Alkaline Phosphatase 66 (38-126) U/L Serum Total Protein 7.9 (6.3-8.2) g/dL Albumin 4.5 (3.5-5.0) g/dL Serum , Qual NEGATIVE (Negative) Urine Color (Yellow) Urine Appearance (Clear) Urine pH (4.6-8.0) Ur Specific [place] (1.005-1.030) Urine Protein (Negative) Urine Glucose (UA) (Negative) mg/dL Urine Ketones (Negative) Urine Blood (Negative) Urine Nitrite (Negative) Urine Bilirubin (Negative) Urine Urobilinogen (0.2) mg/dL Ur Leukocyte Esterase (Negative) U Hyaline Cast (Auto) (0-2) /LPF Urine Microscopic RBC (0-5) /HPF Urine Microscopic WBC (0-5) /HPF Ur Epithelial Cells (None Seen) /HPF Urine Bacteria (None Seen) /HPF Urine Culture Reflexed (NO) Urine Opiates Level (NEGATIVE) Ur Methadone (NEGATIVE) Urine Barbiturates (NEGATIVE) Ur Phencyclidine (PCP) (NEGATIVE) Urine Amphetamine (NEGATIVE) U Benzodiazepine Level (NEGATIVE) Urine Cocaine (NEGATIVE) Urine Marijuana (THC) (NEGATIVE) Ethyl Alcohol < 10 (0-10) mg/dL 02/23/23 02/23/23 Range/Units 20:40 20:40 WBC (4.0-10.5) x10^3/uL RBC (4.1-5.4) x10^6/uL Hgb (12.0-16.0) g/dL Hct (35-47) % MCV (78-100) fL MCH (26-32) pg MCHC (32-36) g/dL RDW (11.5-14.0) % Plt Count (150-450) x10^3/uL MPV (7.5-11.0) fL Gran % (36.0-66.0) % Immature Gran % (Auto) (0.00-0.4) % Nucleat RBC Rel Count (0.00-0.1) % Eos # (Auto) (0-0.5) x10^3/uL Immature Gran # (Auto) (0.00-0.03) x10^3u/L Absolute Lymphs (auto) (1.0-4.6) x10^3/uL Absolute Monos (auto) (0.0-1.3) x10^3/uL Absolute Nucleated RBC (0.00-0.01) x10^3u/L Lymphocytes % (24.0-44.0) % Monocytes % (0.0-12.0) % Eosinophils % (0.00-5.0) % Basophils % (0.0-0.4) % Absolute Granulocytes (1.4-6.9) x10^3/uL Basophils # (0-0.4) x10^3/uL Sodium (137-145) mmol/L Potassium (3.5-5.1) mmol/L Chloride (98-107) mmol/L Carbon Dioxide (22-30) mmol/L Anion Gap (5-15) MEQ/L BUN (7-17) mg/dL Creatinine (0.52-1.04) mg/dL Estimated GFR ML/MIN Glucose (74-106) mg/dL Calcium (8.4-10.2) mg/dL Total Bilirubin (0.2-1.3) mg/dL AST (14-36) U/L ALT (0-35) U/L Alkaline Phosphatase (38-126) U/L Serum Total Protein (6.3-8.2) g/dL Albumin (3.5-5.0) g/dL Serum , Qual (Negative) Urine Color Yellow (Yellow) Urine Appearance Clear (Clear) Urine pH 7.0 (4.6-8.0) Ur Specific [place] >=1.030 A (1.005-1.030) Urine Protein 100 A (Negative) Urine Glucose (UA) Negative (Negative) mg/dL Urine Ketones Trace A (Negative) Urine Blood Negative (Negative) Urine Nitrite Negative (Negative) Urine Bilirubin Negative (Negative) Urine Urobilinogen 1.0 A (0.2) mg/dL Ur Leukocyte Esterase Trace A (Negative) U Hyaline Cast (Auto) NONE SEEN (0-2) /LPF Urine Microscopic RBC 3-5 (0-5) /HPF Urine Microscopic WBC 21-50 A (0-5) /HPF Ur Epithelial Cells Few (None Seen) /HPF Urine Bacteria Few A (None Seen) /HPF Urine Culture Reflexed YES (NO) Urine Opiates Level NEGATIVE (NEGATIVE) Ur Methadone NEGATIVE (NEGATIVE) Urine Barbiturates NEGATIVE (NEGATIVE) Ur Phencyclidine (PCP) NEGATIVE (NEGATIVE) Urine Amphetamine NEGATIVE (NEGATIVE) U Benzodiazepine Level NEGATIVE (NEGATIVE) Urine Cocaine NEGATIVE (NEGATIVE) Urine Marijuana (THC) POSITIVE (NEGATIVE) Ethyl Alcohol (0-10) mg/dL - Progress Progress: improved, re-examined Progress Note: 02/23/23 21:49 This patient's medical issue is 1 of moderate complexity. The complexity of the medical issue and the work-up performed is based on review of the patient's past medical history, review of the patient's medication list, review of the [facility]'s drug allergy list, history present illness, and physical findings on examination. The work-up in this patient includes a test, urinalysis, twelve-lead EKG, CBC, CMP, CAT scan of the head without contrast. The results of these studies were reviewed by me. I am awaiting the results of the CAT scan of the head without contrast. Patient has a urinary tract infection. I discussed this with the patient in detail. We provided the patient with an intravenous line and infusion of intravenous normal saline as well as 1 g intravenous Rocephin to treat her urinary tract infection. We will provide her with outpatient Cipro 500 mg orally twice a day for 7 days. 02/23/23 22:20 CT scan of the head without contrast shows no acute intracranial abnormality. However there is some evidence of bilateral ethmoid and left maxillary sinus and infection/disease Counseled pt/family regarding: lab results, diagnosis, need for follow-up, rad results Medical Desision Making - Independent Historian Additional History obtained from: Spouse - Discussion of managment Reviewed:: Test results Agreed on:: Treatment plan, need for follow-up - Diagnostic Testing Radiological Interpretation: Reviewed by me - Risk of complications The pt has a mod risk of morbidity or mortality based on: Need for prescription drug management - Departure Departure Disposition: Home Clinical Impression: UTI (urinary tract infection), Syncopal episodes, Sinusitis Condition: Stable Critical Care Time: No Referrals: MARIE KENNEY NP [Primary Care Provider] - Follow up/PCP as directed Additional Instructions: Drink plenty of fluids. Take your antibiotics as prescribed. Follow-up with your primary care physician for further evaluation and management. Call your primary care provider tomorrow to make arrangements for follow-up appointment within 5 days. Prescriptions: Ciprofloxacin [Cipro 500 MG] 500 mg PO BID #14 tablet
[2023-02-23 20:11] VITALS: BP 127/76
[2023-02-23] MEDS ORDERED: Sodium Chloride 0.9% 1000 ML 1,000 ML IV STA (20:48)
[2023-02-23] MEDS ORDERED: Zofran 4 MG/2 ML VIAL IV ONE (20:52)
[2023-02-23 21:06] LABS: Appearance Clear (Clear); Bacteria Few /HPF (None Seen); Bilirubin Negative (Negative); Blood Negative (Negative); Epithelial Cells Few /HPF (None Seen); Glucose, Urine Negative (Negative); Hyaline Casts NONE SEEN /LPF (0-2); Ketones Trace (Negative); Leukocyte Esterase Trace (Negative); Nitrite Negative (Negative); Protein,Urine Dip 100 (Negative); Specific Gravity >=1.030 (1.005-1.030); WBC 21-50 /HPF (0-5)
[2023-02-23 21:14] LABS: ADD URINE CULTURE? YES (NO)
[2023-02-23 21:17] LABS: Amphetamine,Urine NEGATIVE (NEGATIVE); Barbiturate,Urine NEGATIVE (NEGATIVE); Benzodiazepine,Urine NEGATIVE (NEGATIVE); Cocaine,Urine NEGATIVE (NEGATIVE); Methadone,Urine NEGATIVE (NEGATIVE); Opiate,Urine NEGATIVE (NEGATIVE); PCP,Urine NEGATIVE (NEGATIVE); THC,Urine POSITIVE (NEGATIVE)
[2023-02-23] MEDS ORDERED: Zofran 4 MG/2 ML VIAL ONE (21:19)
[2023-02-23] MEDS ORDERED: Sodium Chloride 0.9% 1000 ML 1,000 ML ONE (21:19)
[2023-02-23 21:27] LABS: Absolute Neutrophil Ct (ANC) 5.96 x10^3/uL (1.4-6.9); BASOPHIL % 0.2 % (0.0-0.4); Basophil (Absolute #) 0.02 x10^3/uL (0-0.4); Eosinophil % 0.9 % (0.00-5.0); Eosinophil (Absolute #) 0.08 x10^3/uL (0-0.5); Hematocrit 39.9 % (35-47); Hemoglobin 13.2 g/dL (12.0-16.0); IMMATURE GRAN # 0.03 x10^3u/L (0.00-0.03); IMMATURE GRAN % 0.3 % (0.00-0.4); Lymphocyte (Absolute #) 2.33 x10^3/uL (1.0-4.6); Lymphocytes % 25.9 % (24.0-44.0); Mean Cell Volume 86.9 fL (78-100); Mean Corpuscular Hemoglobin 28.8 pg (26-32); Mean Corpuscular Hgb Concent. 33.1 g/dL (32-36); Mean Platelet Volume 10.7 fL (7.5-11.0); Monocyte (Absolute #) 0.59 x10^3/uL (0.0-1.3); Monocytes % 6.5 % (0.0-12.0); Neutrophil % 66.2 % (36.0-66.0); Platelet Count 270 x10^3/uL (150-450); Red Blood Count 4.59 x10^6/uL (4.1-5.4); Red Cell Distribution Width 12.7 % (11.5-14.0)
[2023-02-23 21:38] LABS: ALBUMIN 4.5 g/dL (3.5-5.0); ALKALINE PHOSPHATASE 66 U/L (38-126); BLOOD UREA NITROGEN 11 mg/dL (7-17); CHLORIDE 102 mmol/L (98-107); Carbon Dioxide 30 mmol/L (22-30); EST GLOMERULAR FILTRATION RATE > 60.0 ML/MIN; ETHYL ALCOHOL < 10 mg/dL (0-10); Glucose 77 mg/dL (74-106); Potassium 3.3 mmol/L (3.5-5.1); SGOT/AST 29 U/L (14-36); SGPT/ALT 35 U/L (0-35); SODIUM 142 mmol/L (137-145); Total Protein 7.9 g/dL (6.3-8.2)
[2023-02-23] MEDS ORDERED: ROCEPHIN 1 Gm-D5w 50 ml Bag** 1 G/50 ML IVPB IV STA (21:42)
[2023-02-23] MEDS ORDERED: ROCEPHIN 1 Gm-D5w 50 ml Bag** 1 G/50 ML IVPB IV ONE (21:48)
[2023-02-23 22:14] VITALS: PULSE 82; O2SAT 98
--- NOTE | 2023-02-24 08:48 | XRAY ---
Indication: Syncope. Multiple contiguous axial images obtained through the head without contrast. Comparison: May 04, 2022 Normal appearing brain parenchyma, ventricles, and bony calvarium. Incidental mild mucosal thickening both ethmoid/maxillary sinuses without fluid leveling. Mastoid air cells are clear. Impression: Continued normal CT head without contrast exam. Incidental paranasal sinus disease.
== END 2023-02-23 23:05 | disposition home or self-care (01) ==
LOC: ED 19:45
DX: N39.0 Urinary tract infection, site not specified (principal); R55 Syncope and collapse; J32.8 Other chronic sinusitis; R51.9 Headache, unspecified; I10 Essential (primary) hypertension
CPT/HCPCS: 36000; 36415; 70450; 80053; 80307; 81001; 82077; 84703; 85025; 87086; 93005; 94760; 96360; 96365; 96374; 99284; J0696; J2405

== ENCOUNTER 2023-07-18 17:46 | Emergency (ER) | payer OTHER ==
[2023-07-18 18:08] VITALS: TEMP 98.9
--- NOTE | 2023-07-18 18:32 | ERPHSYRPT ---
- History of Present Illness Historian: patient Exam Limitations: no limitations Patient Subjective Stated Complaint: pt reports abdominal/right flank pain/low back pain beginning last week Triage Nursing Assessment: pt is aox3, pupils perrl, afebrile, resps easy and non labored, radial pulses strong and equal, cap refill < 3 seconds, pt abd soft, tender to the RLQ, pt skin pink warm dry. Timing/Duration: other (11 days) Quality: stabbing Abdominal Pain Onset Location: periumbilical Pain Radiation: back (R CVA) Severity of Pain-Max: moderate Severity of Pain-Current: mild Modifying Factors: Improves With: nothing Associated Symptoms: denies symptoms, back Previous symptoms: no prior history Hx Tetanus, Diphtheria Vaccination/Date Given: Yes Hx Influenza Vaccination/Date Given: No Hx Pneumococcal Vaccination/Date Given: No <WARNER TIRADO - Last Filed: 07/18/23 19:52> <ISABELLE BROWN - Last Filed: 07/18/23 21:17> - History of Present Illness Physician History: 23 yo WF w R CVA and periumbilical pain x 11 days. Pain is stabbing and 3/10 at present. She denies dysuria/hematuria/fever/N/V/Diarrhea/melena/hematochezia. Pt denies . 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: [employer] - Vaccination Dates Dates if Unknown: unknown <WARNER TIRADO - Last Filed: 07/18/23 19:52> - Review of Systems Constitutional: No Symptoms Eyes: No Symptoms Ears, Nose, & Throat: No Symptoms Respiratory: No Symptoms Cardiac: No Symptoms Genitourinary Symptoms: No Symptoms Musculoskeletal: No Symptoms Skin: No Symptoms Neurological: No Symptoms Psychological: No Symptoms Endocrine: No Symptoms Hematologic/Lymphatic: No Symptoms Immunological/Allergic: No Symptoms <WARNER TIRADO Filed: 07/18/23 19:52> - Past Medical History Pertinent Past Medical History: Yes Neurological History: Epilepsy, Seizures ENT History: No Pertinent History Cardiac History: Hypertension Respiratory History: No Pertinent History Endocrine Medical History: No Pertinent History Musculoskeletal History: Fractures GI Medical History: No Pertinent History History: No Pertinent History Psycho-Social History: Anxiety, Depression Female Reproductive Disorders: No Pertinent History Other Medical History: CHRONIC BACK PAIN - Past Surgical History Past Surgical History: Yes Neuro Surgical History: No Pertinent History Cardiac: No Pertinent History Respiratory: No Pertinent History Gastrointestinal: No Pertinent History Genitourinary: No Pertinent History Musculoskeletal: No Pertinent History, Orthopedic Surgery Female Surgical History: No Pertinent History Other Surgical History: rt arm, ankle, knee - Social History Smoking Status: Never smoker Exposure to second hand smoke: No Drug Use: none Patient Lives Alone: No Significant Family History: no pertinent family hx - Female History Hx Last Menstrual Period: 07/14/23 Hx Now: No <GERTELWARNER MYERS Filed: 07/18/23 19:52> - Physical Exam General Appearance: no apparent distress Eye Exam: PERRL/EOMI, eyes nml inspection Ears, Nose, Throat Exam: normal ENT inspection, TMs normal, pharynx normal, moist mucous membranes Neck Exam: normal inspection, non-tender, supple, full range of motion, No meningismus, No mass, No Brudzinski, No Kernig's Respiratory Exam: normal breath sounds, lungs clear, No respiratory distress Cardiovascular Exam: regular rate/rhythm, normal heart sounds, normal peripheral pulses, capillary refill <2 sec, No murmur Gastrointestinal/Abdomen Exam: soft, normal bowel sounds, tenderness (Mild claritza- umbilical TTP wo guarding or rebound) Back Exam: normal inspection, normal range of motion Extremity Exam: normal inspection, normal range of motion Neurologic Exam: alert, 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, cooperative, convention services director II-XII nml as tested, normal mood/affect, nml cerebellar function, nml station & gait, sensation nml Skin Exam: normal color, warm, dry Lymphatic Exam: No adenopathy SpO2 Interpretation: normal SpO2: 99 O2 Delivery: Room Air <GRETELWARNER MYERS Filed: 07/18/23 19:52> <ISABELLE BROWN - Last Filed: 07/18/23 21:17> - Nursing Vital Signs Nursing Vital Signs: Initial Vital Signs Temperature 98.9 F 07/18/23 17:54 Pulse Rate 85 07/18/23 17:54 Respiratory Rate 18 07/18/23 17:54 Blood Pressure 135/85 07/18/23 17:54 O2 Sat by Pulse Oximetry 99 07/18/23 17:54 Pain Scale Pain Intensity 5 WNL (WARNER TIRADO) - Physical Exam Comments: 07/18/23 20:[address] Brown @ 2010: perrl, eomi, lungs clear, no cardiac rub, abdominal B.S. normal, no ankle edema, alert & cooperative. (ISABELLE BROWN) - Course Nursing assessment & vital signs reviewed: Yes - CT Exams Abdomen/Pelvis CT Interpretation: Tele-radiologist Report, Other (no evidence of urolithiasis) <ISABELLE BROWN - Last Filed: 07/18/23 21:17> Ordered Tests: Active Orders 24 hr Category Date Time Status IV Insertion STAT Care 07/18/23 18:16 Active ABDOMEN AND PELVIS W/0 CONTRAS [CT] Stat Exams 07/18/23 19:36 Completed AMYLASE Stat Lab 07/18/23 18:00 Completed CBC W DIFF Stat Lab 07/18/23 18:00 Completed CMP Stat Lab 07/18/23 18:00 Completed CULTURE,URINE Stat Lab 07/18/23 17:57 Received HCG QUALITATIVE, URINE Stat Lab 07/18/23 18:42 Completed LIPASE Stat Lab 07/18/23 18:00 Completed UA W/RFX UR CULTURE Stat Lab 07/18/23 17:57 Completed Medication Summary Discontinued Medications Generic Name Dose Route Start Last Admin Trade Name Freq PRN Reason Stop Dose Admin Ceftriaxone Sodium/Dextrose 1 g in 50 mls @ 100 mls/hr 07/18/23 19:11 19:44 Rocephin 1 Gm-D5w 50 Ml Bag IV 07/18/23 19:40 Infused STAT STA Infusion Ceftriaxone Sodium/Dextrose Confirm 07/18/23 19:12 Rocephin 1 Gm-D5w 50 Ml Bag Administered 07/18/23 19:13 Dose 1 g in 50 mls @ ud IV .STK-MED ONE Lab/Rad Data: Laboratory Result Diagrams 07/18/23 18:00 07/18/23 18:00 Laboratory Results 07/18/23 07/18/23 07/18/23 Range/Units 18:42 18:00 18:00 WBC 9.3 (4.0-10.5) x10^3/uL RBC 4.44 (4.1-5.4) x10^6/uL Hgb 12.9 (12.0-16.0) g/dL Hct 39.6 (35-47) % MCV 89.2 (78-100) fL MCH 29.1 (26-32) pg MCHC 32.6 (32-36) g/dL RDW 12.5 (11.5-14.0) % Plt Count 288 (150-450) x10^3/uL MPV 11.5 H (7.5-11.0) fL Gran % 69.9 H (36.0-66.0) % Immature Gran % (Auto) 0.2 (0.00-0.4) % Nucleat RBC Rel Count 0.0 (0.00-0.1) % Eos # (Auto) 0.10 (0-0.5) x10^3/uL Immature Gran # (Auto) 0.02 (0.00-0.03) x10^3u/L Absolute Lymphs (auto) 2.00 (1.0-4.6) x10^3/uL Absolute Monos (auto) 0.66 (0.0-1.3) x10^3/uL Absolute Nucleated RBC 0.00 (0.00-0.01) x10^3u/L Lymphocytes % 21.5 L (24.0-44.0) % Monocytes % 7.1 (0.0-12.0) % Eosinophils % 1.1 (0.00-5.0) % Basophils % 0.2 (0.0-0.4) % Absolute Granulocytes 6.51 (1.4-6.9) x10^3/uL Basophils # 0.02 (0-0.4) x10^3/uL Sodium 140 (137-145) mmol/L Potassium 4.1 (3.5-5.1) mmol/L Chloride 103 (98-107) mmol/L Carbon Dioxide 26 (22-30) mmol/L Anion Gap 15.1 H (5-15) MEQ/L BUN 6 L (7-17) mg/dL Creatinine 0.72 (0.52-1.04) mg/dL Estimated GFR > 60.0 ML/MIN Glucose 85 (74-106) mg/dL Calcium 9.3 (8.4-10.2) mg/dL Total Bilirubin 0.50 (0.2-1.3) mg/dL AST 21 (14-36) U/L ALT 22 (0-35) U/L Alkaline Phosphatase 53 (38-126) U/L Serum Total Protein 7.1 (6.3-8.2) g/dL Albumin 4.3 (3.5-5.0) g/dL Amylase 50 (30-110) U/L Lipase 82 (23-300) U/L Urine Color (Yellow) Urine Appearance (Clear) Urine pH (4.6-8.0) Ur Specific [place] (1.005-1.030) Urine Protein (Negative) Urine Glucose (UA) (Negative) mg/dL Urine Ketones (Negative) Urine Blood (Negative) Urine Nitrite (Negative) Urine Bilirubin (Negative) Urine Urobilinogen (0.2) mg/dL Ur Leukocyte Esterase (Negative) U Hyaline Cast (Auto) (0-2) /LPF Urine Microscopic RBC (0-5) /HPF Urine Microscopic WBC (0-5) /HPF Ur Epithelial Cells (None Seen) /HPF Urine Bacteria (None Seen) /HPF Urine Culture Reflexed (NO) Urine HCG, Qual NEGATIVE (NEGATIVE) 07/18/23 Range/Units 17:57 WBC (4.0-10.5) x10^3/uL RBC (4.1-5.4) x10^6/uL Hgb (12.0-16.0) g/dL Hct (35-47) % MCV (78-100) fL MCH (26-32) pg MCHC (32-36) g/dL RDW (11.5-14.0) % Plt Count (150-450) x10^3/uL MPV (7.5-11.0) fL Gran % (36.0-66.0) % Immature Gran % (Auto) (0.00-0.4) % Nucleat RBC Rel Count (0.00-0.1) % Eos # (Auto) (0-0.5) x10^3/uL Immature Gran # (Auto) (0.00-0.03) x10^3u/L Absolute Lymphs (auto) (1.0-4.6) x10^3/uL Absolute Monos (auto) (0.0-1.3) x10^3/uL Absolute Nucleated RBC (0.00-0.01) x10^3u/L Lymphocytes % (24.0-44.0) % Monocytes % (0.0-12.0) % Eosinophils % (0.00-5.0) % Basophils % (0.0-0.4) % Absolute Granulocytes (1.4-6.9) x10^3/uL Basophils # (0-0.4) x10^3/uL Sodium (137-145) mmol/L Potassium (3.5-5.1) mmol/L Chloride (98-107) mmol/L Carbon Dioxide (22-30) mmol/L Anion Gap (5-15) MEQ/L BUN (7-17) mg/dL Creatinine (0.52-1.04) mg/dL Estimated GFR ML/MIN Glucose (74-106) mg/dL Calcium (8.4-10.2) mg/dL Total Bilirubin (0.2-1.3) mg/dL AST (14-36) U/L ALT (0-35) U/L Alkaline Phosphatase (38-126) U/L Serum Total Protein (6.3-8.2) g/dL Albumin (3.5-5.0) g/dL Amylase (30-110) U/L Lipase (23-300) U/L Urine Color Yellow (Yellow) Urine Appearance Turbid A (Clear) Urine pH 6.0 (4.6-8.0) Ur Specific [place] 1.020 (1.005-1.030) Urine Protein 100 A (Negative) Urine Glucose (UA) Negative (Negative) mg/dL Urine Ketones Negative (Negative) Urine Blood Moderate A (Negative) Urine Nitrite Negative (Negative) Urine Bilirubin Negative (Negative) Urine Urobilinogen 0.2 (0.2) mg/dL Ur Leukocyte Esterase Moderate A (Negative) U Hyaline Cast (Auto) NONE SEEN (0-2) /LPF Urine Microscopic RBC 51-100 A (0-5) /HPF Urine Microscopic WBC >100 A (0-5) /HPF Ur Epithelial Cells Many A (None Seen) /HPF Urine Bacteria Moderate A (None Seen) /HPF Urine Culture Reflexed YES (NO) Urine HCG, Qual (NEGATIVE) <WARNER TIRADO - Last Filed: 07/18/23 19:52> - Progress Progress: unchanged Counseled pt/family regarding: lab results, diagnosis, need for follow-up, rad results <ISABELLE BROWN - Last Filed: 07/18/23 21:17> - Progress Progress Note: 07/18/23 19:52 Nursing note and vital signs reviewed No food or housing insecurities noted 1gm IV Rocephin 07/18/23 19:53 Care turned over to Dr. Brown [place] [address] ab-pelvis pending/ Expect discharge (WARNER TIRADO) Medical Desision Making - Diagnostic Testing Diagnostic test were ordered, analyzed, and reviewed by me: Yes Radiological Interpretation: Teleradiologist Report <ISABELLE BROWN - Last Filed: 07/18/23 21:17> <WARNER TIRADO - Last Filed: 07/18/23 19:52> - Departure Departure Disposition: Home Critical Care Time: No <ISABELLE BROWN - Last Filed: 07/18/23 21:17> - Departure Clinical Impression: UTI (urinary tract infection), Abdominal pain Condition: Stable Referrals: [facility] [Primary Care Provider] - Follow up/PCP as directed Instructions: Abdominal pain Additional Instructions: Drink plenty of fluids. Return to [facility] for an outpatient gallbladder ultrasound. Prescriptions: Nitrofurantoin Macro 100 mg [Macrobid 100MG Capsule] 100 mg PO BID #14 cap
[2023-07-18 18:56] LABS: HCG URINE TEST NEGATIVE (NEGATIVE)
[2023-07-18 19:07] LABS: ADD URINE CULTURE? YES (NO); Appearance Turbid (Clear); Bacteria Moderate /HPF (None Seen); Bilirubin Negative (Negative); Blood Moderate (Negative); Epithelial Cells Many /HPF (None Seen); Glucose, Urine Negative (Negative); Hyaline Casts NONE SEEN /LPF (0-2); Ketones Negative (Negative); Leukocyte Esterase Moderate (Negative); Nitrite Negative (Negative); Protein,Urine Dip 100 (Negative); RBC 51-100 /HPF (0-5); Urobilinogen 0.2 mg/dL (0.2); WBC >100 /HPF (0-5)
[2023-07-18] MEDS ORDERED: ROCEPHIN 1 Gm-D5w 50 ml Bag** 1 G/50 ML IVPB IV STA (19:11)
[2023-07-18] MEDS ORDERED: ROCEPHIN 1 Gm-D5w 50 ml Bag** 1 G/50 ML IVPB IV ONE (19:12)
[2023-07-18 19:43] VITALS: BP 101/68
[2023-07-18 20:22] LABS: Absolute Neutrophil Ct (ANC) 6.51 x10^3/uL (1.4-6.9); BASOPHIL % 0.2 % (0.0-0.4); Basophil (Absolute #) 0.02 x10^3/uL (0-0.4); Eosinophil % 1.1 % (0.00-5.0); Hematocrit 39.6 % (35-47); Hemoglobin 12.9 g/dL (12.0-16.0); IMMATURE GRAN # 0.02 x10^3u/L (0.00-0.03); IMMATURE GRAN % 0.2 % (0.00-0.4); Lymphocytes % 21.5 % (24.0-44.0); Mean Cell Volume 89.2 fL (78-100); Mean Corpuscular Hemoglobin 29.1 pg (26-32); Mean Corpuscular Hgb Concent. 32.6 g/dL (32-36); Mean Platelet Volume 11.5 fL (7.5-11.0); Monocyte (Absolute #) 0.66 x10^3/uL (0.0-1.3); Monocytes % 7.1 % (0.0-12.0); Neutrophil % 69.9 % (36.0-66.0); Platelet Count 288 x10^3/uL (150-450); Red Blood Count 4.44 x10^6/uL (4.1-5.4); Red Cell Distribution Width 12.5 % (11.5-14.0); White Blood Count 9.3 x10^3/uL (4.0-10.5)
[2023-07-18 20:28] LABS: ALBUMIN 4.3 g/dL (3.5-5.0); ALKALINE PHOSPHATASE 53 U/L (38-126); AMYLASE 50 U/L (30-110); ANION GAP 15.1 MEQ/L (5-15); BLOOD UREA NITROGEN 6 mg/dL (7-17); CHLORIDE 103 mmol/L (98-107); Calcium 9.3 mg/dL (8.4-10.2); Carbon Dioxide 26 mmol/L (22-30); Creatinine 1 0.72 mg/dL (0.52-1.04); EST GLOMERULAR FILTRATION RATE > 60.0 ML/MIN; Glucose 85 mg/dL (74-106); LIPASE 82 U/L (23-300); Potassium 4.1 mmol/L (3.5-5.1); SGOT/AST 21 U/L (14-36); SGPT/ALT 22 U/L (0-35); SODIUM 140 mmol/L (137-145); Total Protein 7.1 g/dL (6.3-8.2)
--- NOTE | 2023-07-18 20:52 | XRAY ---
CLINICAL HISTORY:hematuria COMPARISON:None. TECHNIQUE:CT scan of the abdomen and pelvis was performed without IV contrast. Coronal and sagittal reconstructive images were also obtained. FINDINGS: Abdomen: The liver is of average size. No focal or diffuse parenchymal abnormality. The portal vein, intrahepatic biliary radicals, and bile ducts are normal. The spleen, pancreas, and adrenal glands are unremarkable. A small splenunculus is noted. The kidneys are unremarkable. They are normal in size and shape. No calculi or hydronephrosis. The gallbladder is distended. There is no evidence of wall thickening/ pericholecystic collection. The ascending colon, the transverse colon, and the descending colon visualized small bowel loops are unremarkable. Mild uncomplicated colonic diverticulosis noted. There is no evidence of significant enlargement of the mesenteric or retroperitoneal lymph nodes. Pelvis: The urinary bladder is unremarkable. The rectosigmoid colon is unremarkable. The uterus and adnexa appear unremarkable. No evidence of pelvic lymphadenopathy. No definite bony abnormalities could be depicted. IMPRESSION: No evidence of urolithiasis in the present study. Contrast-enhanced CT with delayed imaging/urography can be done for better evaluation. Electronically Signed by: Hany Hung MD. (07/18/2023 19:49:56 HOOK TENDER)
[2023-07-18 21:45] VITALS: PULSE 80; RESP 16; O2SAT 98
== END 2023-07-18 21:47 | disposition home or self-care (01) ==
LOC: ED 17:46
DX: N39.0 Urinary tract infection, site not specified (principal); R10.33 Periumbilical pain; I10 Essential (primary) hypertension; Z79.899 Other long term (current) drug therapy
CPT/HCPCS: 36000; 36415; 74176; 80053; 81001; 81025; 82150; 83690; 85025; 87077; 87086; 87186; 96365; 99284; J0696

== ENCOUNTER 2024-05-24 07:03 | Emergency (ER) | payer OTHER ==
[2024-05-24 07:14] VITALS: TEMP 98
--- NOTE | 2024-05-24 07:33 | ERPHSYRPT ---
- History of Present Illness Time Seen by Provider: 05/24/24 07:33 Source: patient Exam Limitations: no limitations Patient Subjective Stated Complaint: "For the past three days I have tried to get ahold of my family but they are not calling me back. My ear is throbbing and the swelling is down into my neck and the pain is unberarable." Triage Nursing Assessment: Pt moaning and wincing, grasping at right ear. Physician History: 24-year-old female presents to our ED for evaluation of right ear pain. Symptoms started about 4 to 5 days ago. Symptoms have gotten progressively worse. Patient attempted to contact her primary care doctor over the weekend but was unsuccessful. Pain described as an ache that is localized no radiation. Pain is associated with some diminished hearing loss of the right ear. No ob vious drainage. No trauma no fever no nausea vomiting or diaphoresis. Symptoms are constant. Symptoms are moderate in intensity. Manipulation of the right external ear reproduces pain. Patient had similar symptoms in the past. Patient otherwise feels well. She voices no other complaints or concerns at this time. Portions of this note were created with voice recognition technology. There may be grammatical, spelling, punctuation or sound alike errors Timing/Duration: gradual onset Severity: moderate ENT Location: ear (R) Prearrival Treatment: no prearrival treatment Modifying Factors: Improves With: nothing Associated Symptoms: other (Diminished hearing right ear) Allergies/Adverse Reactions: No Known Drug Allergies Allergy (Verified 07/18/23 18:03) Home Medications: Levetiracetam [Keppra] 4,000 mg PO DAILY 07/18/23 [History] Hx Tetanus, Diphtheria Vaccination/Date Given: Yes Hx Influenza Vaccination/Date Given: No Hx Pneumococcal Vaccination/Date Given: No Immunizations Up to Date: No Travel Risk - International Travel Have you traveled outside of the country in past 3 weeks: No - Emerging Infectious Disease Are you exhibiting symptoms associated with any current EIDs: No - Review of Systems Constitutional: No Symptoms, No Fever, No Chills Eyes: No Symptoms Ears, Nose, & Throat: No Symptoms Respiratory: No Symptoms, No Cough, No Dyspnea Cardiac: No Symptoms, No Chest Pain, No Edema, No Syncope Abdominal/Gastrointestinal: No Symptoms, No Abdominal Pain, No Nausea, No Vomiting, No Diarrhea Genitourinary Symptoms: No Symptoms, No Dysuria Musculoskeletal: No Symptoms, No Back Pain, No Neck Pain Skin: No Symptoms, No Rash Neurological: No Symptoms, No Dizziness, No Focal Weakness, No Sensory Changes Psychological: No Symptoms Endocrine: No Symptoms Hematologic/Lymphatic: No Symptoms Immunological/Allergic: No Symptoms All Other Systems: Reviewed and Negative - Past Medical History Pertinent Past Medical History: Yes Neurological History: Epilepsy, Seizures ENT History: No Pertinent History Cardiac History: Hypertension Respiratory History: No Pertinent History Endocrine Medical History: No Pertinent History Musculoskeletal History: Fractures GI Medical History: No Pertinent History History: No Pertinent History Psycho-Social History: Anxiety, Depression Female Reproductive Disorders: No Pertinent History Other Medical History: CHRONIC BACK PAIN - Past Surgical History Past Surgical History: Yes Neuro Surgical History: No Pertinent History Cardiac: No Pertinent History Respiratory: No Pertinent History Gastrointestinal: No Pertinent History Genitourinary: No Pertinent History Musculoskeletal: No Pertinent History, Orthopedic Surgery Female Surgical History: No Pertinent History Other Surgical History: rt arm, ankle, knee Significant Family History: no pertinent family hx - Female History Hx Last Menstrual Period: 05/09/2024 Hx Now: No - Social History Smoking Status: Never smoker Exposure to second hand smoke: No Drug Use: none Patient Lives Alone: No - Social Determinants of Health Will the patient participate in the screening: Declined to provide - Nursing Vital Signs Nursing Vital Signs: Initial Vital Signs Temperature 98.0 F 05/24/24 07:09 Pulse Rate 106 H 05/24/24 07:09 Respiratory Rate 20 05/24/24 07:09 Blood Pressure 143/88 05/24/24 07:09 O2 Sat by Pulse Oximetry 97 05/24/24 07:09 Pain Scale Pain Intensity 7 - Physical Exam General Appearance: no apparent distress, alert Eye Exam: bilateral eye: normal inspection, PERRL, EOMI Ear Exam: right ear: other (Right ear canal is swollen shut. Unable to visualize TM.), left ear: auricle normal, canal normal, TM normal Nasal Exam: normal inspection Throat Exam: pharynx normal, moist mucus membranes, No tonsillar exudate Neck Exam: normal inspection, non-tender, supple, full range of motion Cardiovascular/Respiratory Exam: chest non-tender, normal breath sounds, regular rate/rhythm Abdominal Exam: non-tender, soft Neurologic Exam: alert, 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, sensation nml, No motor deficits Skin Exam: normal color, warm, dry SpO2 Interpretation: normal SpO2: 97 O2 Delivery: Room Air - Course Nursing assessment & vital signs reviewed: Yes Ordered Tests: Medication Summary Generic Name Dose Route Start Last Admin Trade Name Shital PRN Reason Stop Dose Admin Ciprodex Ear Drops ( 0 each 05/24/24 10:00 05/24/24 07:44 Generic) OT 06/23/24 09:59 1 each BID SOHAIL Administration Discontinued Medications Generic Name Dose Route Start Last Admin Trade Name Frekelechi PRN Reason Stop Dose Admin Ketorolac Tromethamine 30 mg 05/24/24 07:33 05/24/24 07:45 Ketorolac Tromethamine 30 Mg/Ml Inj IM 05/24/24 07:34 30 mg STAT ONE Administration Ketorolac Tromethamine Confirm 05/24/24 07:45 Ketorolac Tromethamine 30 Mg/Ml Inj Administered 05/24/24 07:46 Dose 30 mg .ROUTE .[facility]-MED ONE - Progress Progress: improved Progress Note: 05/24/24 08:32 24-year-old female presents to our ED for evaluation of right ear pain. Physical exam reveals otitis media with swelling of the right external auditory canal. Patient received an IM dose of Toradol. An ear wick was placed to dilate the canal followed by Ciprodex. Patient reassessed. She is resting comfortably. Pain significantly improved. No indication for further workup will discharge home. We will give patient the Ciprodex bottle to take home. No indication for additional Ciprodex prescription. Vital stable. Patient voices no other complaints or concerns at this time. Patient agrees to follow-up with her primary care doctor within 48 hours for reevaluation. The airleak is expected to fall out once the swelling resolves. Patient to apply 2 to 4 drops 4 times per day for 1 week Complex problem addressed is moderate acute complicated. No critical care time. Complex of data reviewed and analyzed is none. Diagnosis made based on history and physical. No specialized testing ordered. Risk of complication and or risk of morbidity/mortality patient management is moderate. Ciprodex antibiotic given to patient for home use. Vital stable. Time spent to discharge patient approximately 20 minutes. Plan of care established for shared decision making. No social determinants of health present impede follow-up. Portions of this note were created with voice recognition technology. There may be grammatical, spelling, punctuation or sound alike errors Counseled pt/family regarding: lab results, diagnosis, need for follow-up - Departure Departure Disposition: Home Clinical Impression: Otitis media Condition: Stable Critical Care Time: No Referrals: [facility] TECHN[facility] [Primary Care Provider] - Follow up/PCP as directed Additional Instructions: Discharge/Care Plan SARA RODRIGUEZ was seen on 05/24/24 in the Emergency Room. The patient was counseled regarding Diagnosis,Lab results, Imaging studies, need for follow up and when to return to the Emergency Room. Prescriptions given: Discharge Note I have spoken with the patient and/or caregivers. I have explained the patient's condition, diagnosis and treatment plan based on the information available to me at this time. I have answered the patient's and/or caregiver's questions and addressed any concerns. The patient and/or caregivers have as good understanding of the patient's diagnosis, condition and treatment plan as can be expected at this point. The vital signs have been stable. The patient's condition is stable and appropriate for discharge from the emergency department. The patient will pursue further outpatient evaluation with the primary care physician or other designated or consulting physician as outlined in the dis charge instructions. The patient and/or caregivers are agreeable to this plan of care and follow-up instructions have been explained in detail. The patient and/or caregivers have received these instruction. The patient/and or caregivers are aware that any significant change in condition or worsening of symptoms should prompt an immediate return to this or the closest emergency department or call 911.
[2024-05-24] MEDS: NON-FORMULARY ITEM OT SCH (07:44)
[2024-05-24] MEDS: TORAdol 30 mg Injection IM ONE (07:45)
[2024-05-24] MEDS ORDERED: TORAdol 30 mg Injection ONE (07:45)
[2024-05-24 08:16] VITALS: PULSE 102
[2024-05-24 08:17] VITALS: BP 149/84; RESP 22; O2SAT 97
== END 2024-05-24 08:45 | disposition home or self-care (01) ==
LOC: ED 07:03
DX: H66.91 Otitis media, unspecified, right ear (principal); H92.01 Otalgia, right ear; I10 Essential (primary) hypertension
CPT/HCPCS: 96372; 99283; J1885